=== PATIENT | female | born 1985 | race Caucasian/White ===

== ENCOUNTER 2017-10-09 21:18 | Emergency (ER) | payer OTHER, MEDICAID ==
[~2017-10-09 21:18] MED LIST: ACETAMINOPHEN-1 EAC1 PO; AMOXICILLIN875 MG PO; AMOXIL 875 MG875 M1 PO; AUGMENTIN 875-1 EACH PO; BACTRIM DS TAB1 EACH PO; BUPROPION; CELEXA20 MG PO; CIPROFLOXACIN500 M1 PO; CLEOCIN HCL300 MG PO; CLONAZEPAM; CLONAZEPAM 1 MG1 M1 PO; FLEXERIL PO; HYDROCODON-ACE1 EACH PO; HYDROCODONE-AP1 EAC6 PO; IBUPROFEN 600600 M1 PO; IBUPROFEN 800800 M1; IBUPROFEN 800800 M1 PO; IBUPROFEN 800800 MG PO; LEXAPRO 10 MG T10 MG PO; MACROBID 100 M100 M1 PO; MECLIZINE HCL25 M1; MECLIZINE HCL25 M1 PO; MELOXICAM; MELOXICAM7.5 MG; MELOXICAM7.5 MG PO; MOBIC7.5 MG PO; MULTI VITAMIN1 EACH PO; NAPROSYN500 MG PO; NOHOMEMEDICATIONS; NORCO 5-325 TA1 EAC1 PO; NORCO 5-325 TA1 EACH PO; PAXIL10 MG PO; PENICILLIN VK250 MG PO; PENICILLIN VK500 M1 PO; PERCOCET; PERCOCET 10-321 EACH PO; PERCOCET 5-3251 EACH; PERCOCET 5-3251 EACH PO; PERCOCET PO; PROZAC 20 MG20 M1; PYRIDIUM200 MG PO; ROBAXIN 750 MG750 M1 PO; TRAMADOL 50 MG50 MG PO; ULTRAM 50MG TAB50 MG PO; VALIUM5 MG PO; VICODIN 5-5001 EACH PO; VISTARIL 25 MG25 M1 PO; ZANAFLEX4 MG PO; ZOFRAN 4 MG ORAL4 MG PO; ZOFRAN ODT4 MG PO; [UNRECOGNIZED DRUG - OTHER]
[2017-10-09] MEDS ORDERED: CELEBREX 200 M200 M1 (21:25)
[2017-10-09] MEDS ORDERED: ALEVE (21:26)
[2017-10-09] MEDS ORDERED: VITAMIN (21:26)
[2017-10-09] MEDS ORDERED: TIZANIDINE (21:26)
[2017-10-09] MEDS ORDERED: PERCOCET (21:26)
[2017-10-09] MEDS ORDERED: DULOXETINE (21:26)
[2017-10-09] MEDS ORDERED: CLONAZEPAM (21:27)
[2017-10-09] MEDS ORDERED: KEFLEX500 M1 PO (21:37)
[2017-10-09] MEDS ORDERED: BENADRYL25 MG PO (21:37)
[2017-10-09 21:58] VITALS: BP 108/75
== END 2017-10-09 21:58 | disposition home or self-care (01) ==
LOC: M.ERS 21:18
DX: L25.9 Unspecified contact dermatitis, unspecified cause (principal); F17.210 Nicotine dependence, cigarettes, uncomplicated; Z88.0 Allergy status to penicillin; Z88.1 Allergy status to other antibiotic agents; Z88.6 Allergy status to analgesic agent

== ENCOUNTER 2017-11-05 19:41 | Emergency (ER) | payer OTHER, MEDICAID ==
[~2017-11-05] VITALS: Ht 162.6 cm; Wt 77.1 kg
[~2017-11-05 19:41] MED LIST changes: +ALEVE; +BENADRYL25 MG PO; +CELEBREX 200 M200 M1; +DULOXETINE; +KEFLEX500 M1 PO; +TIZANIDINE; +VITAMIN
[2017-11-05] MEDS ORDERED: NORCO 5-325 TA1 EACH PO (20:17)
[2017-11-05] MEDS ORDERED: KEFLEX500 M1 PO (20:17)
[2017-11-05] MEDS ORDERED: BACTRIM DS TAB1 EACH PO (20:17)
[2017-11-05 20:37] VITALS: BP 135/90
== END 2017-11-05 20:38 | disposition home or self-care (01) ==
LOC: M.ERS 19:41
DX: L03.114 Cellulitis of left upper limb (principal); F17.210 Nicotine dependence, cigarettes, uncomplicated; Z88.1 Allergy status to other antibiotic agents; Z88.0 Allergy status to penicillin; Z88.6 Allergy status to analgesic agent

== ENCOUNTER 2018-01-18 13:04 | Emergency (ER) | payer OTHER, MEDICAID ==
[~2018-01-18] VITALS: Ht 162.6 cm; Wt 79.4 kg
[2018-01-18] MEDS ORDERED: BIOTIN0.5 GM PO (13:28)
[2018-01-18] MEDS ORDERED: ROBAXIN500 MG PO (15:46)
[2018-01-18 15:59] VITALS: BP 115/80
[2018-01-18] MEDS ORDERED: ZANAFLEX2 MG PO (16:02)
== END 2018-01-18 16:04 | disposition home or self-care (01) ==
LOC: M.ERS 13:04
DX: S51.812A Laceration without foreign body of left forearm, initial encounter (principal); S00.83XA Contusion of other part of head, initial encounter; V89.2XXA Person injured in unspecified motor-vehicle accident, traffic, initial encounter; Y93.89 Activity, other specified; Y92.89 Other specified places as the place of occurrence of the external cause; Y99.8 Other external cause status; F17.210 Nicotine dependence, cigarettes, uncomplicated; Z88.0 Allergy status to penicillin

== ENCOUNTER → 2020-02-04 | Outpatient (CLI) | payer OTHER, MEDICAID ==
[~2020-02-04] MED LIST changes: +BIOTIN0.5 GM PO; +ROBAXIN500 MG PO; +ZANAFLEX2 MG PO
== END ==
LOC: M.LAB 15:02
PROVIDERS: ATTEND Orthopaedic Surgery
DX: Z01.812 Encounter for preprocedural laboratory examination (principal); Z20.828 Contact with and (suspected) exposure to other viral communicable diseases

== ENCOUNTER 2020-07-05 14:36 | Emergency (ER) | payer OTHER, MEDICAID ==
[~2020-07-05] VITALS: Ht 162.6 cm; Wt 81.7 kg
[2020-07-05] MEDS ORDERED: CYMBALTA30 MG PO (14:49)
[2020-07-05] MEDS ORDERED: SUBOXONE 8 MG-1 EAC3 SUBLING (14:50)
[2020-07-05] MEDS ORDERED: XANAX1 MG PO (14:50)
[2020-07-05 15:03] VITALS: BP 127/87
== END 2020-07-05 15:05 | disposition home or self-care (01) ==
LOC: M.ERS 14:36
DX: F15.90 Other stimulant use, unspecified, uncomplicated (principal); Z76.0 Encounter for issue of repeat prescription; S40.022A Contusion of left upper arm, initial encounter; S40.021A Contusion of right upper arm, initial encounter; F17.210 Nicotine dependence, cigarettes, uncomplicated; Z88.0 Allergy status to penicillin; Z88.6 Allergy status to analgesic agent; X58.XXXA Exposure to other specified factors, initial encounter; Y93.89 Activity, other specified; Y92.89 Other specified places as the place of occurrence of the external cause; Y99.8 Other external cause status

== ENCOUNTER 2020-10-23 18:01 | Emergency (ER) | payer OTHER, MEDICAID ==
[~2020-10-23] VITALS: Ht 162.6 cm; Wt 77.1 kg
[~2020-10-23 18:01] MED LIST changes: +CYMBALTA30 MG PO; +SUBOXONE 8 MG-1 EAC3 SUBLING; +XANAX1 MG PO
[2020-10-23] MEDS ORDERED: SUBUTEX (18:22)
[2020-10-23] MEDS ORDERED: TORADOL 10 MG T10 MG PO (21:08)
[2020-10-23] MEDS ORDERED: DOXYCYCLINE 10100 M2 PO (21:08)
[2020-10-23 21:31] VITALS: BP 124/78
== END 2020-10-23 21:31 | disposition home or self-care (01) ==
LOC: M.ERS 18:01
DX: L02.511 Cutaneous abscess of right hand (principal); F17.210 Nicotine dependence, cigarettes, uncomplicated; Z88.0 Allergy status to penicillin; Z88.6 Allergy status to analgesic agent